=== PATIENT | female | born 1980 | race Caucasian/White ===

== ENCOUNTER 2016-02-22 01:58 | Emergency (ER) | payer BC ==
[2016-02-22] MEDS ORDERED: ONDANSETRON HCL 4 MG/2 ML VIAL IV ONE (02:12)
[2016-02-22] MEDS ORDERED: SODIUM CHLORIDE 0.9% 10 ML FLUSH FLUSH PRN (02:12)
[2016-02-22] MEDS ORDERED: MORPHINE 4 MG/ML INJECTION IV ONE (02:12)
[2016-02-22 02:14] VITALS: TEMP 98.1; BMI 34.8
--- NOTE | 2016-02-22 02:15 | EDPRACDOC ---
- General Information Stated Complaint: ABDOMINAL PAIN Time Seen by Provider: 02/22/16 02:04 Information Source: Patient, Family Mode Of Arrival: Car Home Medications: Home Medications Ciprofloxacin HCl [Cipro] 500 mg PO BID #20 tab 07/27/15 Ketorolac Tromethamine [Toradol] 10 mg PO Q6H PRN #20 tab 07/27/15 Levetiracetam [Keppra] 500 mg PO QAM 07/27/15 Levetiracetam [Keppra] 750 mg PO QHS 07/27/15 Montelukast Sodium [Singulair] 10 mg PO HS 07/27/15 Ondansetron [Zofran Odt] 4 mg PO Q6H PRN #20 tab.rapdis 07/27/15 Pantoprazole Sodium [Protonix] 40 mg PO DAILY 07/27/15 Zonisamide [Zonegran] 200 mg PO QHS 07/27/15 Hydrocodone Bit/Acetaminophen [Lortab 5/325] 1 tab PO Q4-6H PRN #15 tab Polyethylene Glycol 3350 [Miralax] 17 gm PO DAILY PRN #119 grams 02/22/16 Promethazine [Phenergan] 25 mg PO Q4-6H PRN #15 tab 02/22/16 Allergies/Adverse Reactions: Allergies Allergy/AdvReac Type Severity Reaction Status Date / Time amoxicillin trihydrate Allergy Mild Rash-Genera Verified 02/22/16 02:15 [From Augmentin] lized potassium clavulanate Allergy Mild Rash-Genera Verified 02/22/16 02:15 [From Augmentin] lized - History of Present Illness Onset: 2-3 days HPI: Pt c/o upper abd pain x 2-3 days that is persistent. Pt states for about 1 yrs she has had intermittent abd pain but no one has been able to tell her why, now pain is worse and unrelieved with OTC meds. Denies fever, n/v, changes in bowel or bladder, rash, cp, sob. Pain Location: Reports: RUQ, LUQ Pain Context: Reports: Spontaneous Pain Severity: Moderate Pain Quality: Reports: Aching, Sharp Pain Radiation: Reports: Back : No Abortus: 0 Modifying Factors: improves with: Nothing Female Associated Signs & Symptoms: Denies: Nausea, Frequency, Vaginal Bleeding , Vomiting, Hematemesis, Anorexia, Diarrhea, Melena, Dysuria, Fever, Urgency, Hematuria, Chills, Vaginal Discharge, Other Oral Intake: Normal Urinary Output: Normal ED Past Medical History - History Reviewed Yes Nurses notes reviewed and agree except as marked - Patient Medical History GI/ History: Reports: Gastroesophageal Reflux - Social Medical History Smoking Status: Never smoker ETOH: None Substance Abuse: None EDM Review of Systems - Review of Systems Constitutional: No Symptoms Reported. negative: Fever, Chills, Weakness, Fatigue, Loss of Appetite Ears: No Symptoms Reported. negative: Pain, Hearing Loss, Drainage, Ear Pulling Throat: No Symptoms Reported. negative: Pain, Swelling Nose: No Symptoms Reported. negative: Congestion, Bleeding, Discharge, Injection, Swelling, Deformity, Ecchymosis, Tender, Abrasion, Laceration Mouth: No Symptoms Reported. negative: Pain, Drooling Respiratory: No Symptoms Reported. negative: Cough, Brassy Cough, Barky Cough, Shortness of Breath, Wheezing, Hemoptysis Cardiovascular: No Symptoms Reported. negative: Chest Pain, Palpitations, Syncope, Edema, Orthopnea, PND, Skin Mottling, Cyanosis Gastrointestinal: Pain Genitourinary: No Symptoms Reported. negative: Dysuria, Hematuria, Frequency, Discharge, Bleeding, Testicular Pain, Neurological: No Symptoms Reported. negative: Headache, Dizziness, Seizure, Numbness, Weakness, Speech Difficulty, Gait Difficulty Musculoskeletal: Back, Ribs Integumentary: No Symptoms Reported. negative: Itching, Rash, Bruising, Wound Allergic/Immunologic: No Symptoms Reported. negative: Hives, Itching Hematologic: No Symptoms Reported. negative: Lymphadenopathy, Easy Bruising, Easy Bleeding Psychiatric: No Symptoms Reported. negative: Anxiety, Depression, Hallucinations, Insomnia, Suicidal - Physical Exam Constitutional: Alert Oriented to: Time, Person, Place Last recorded Vital Signs: Last Vital Signs Temp 98.1 F 02/22/16 02:10 Pulse 112 02/22/16 02:10 Resp 18 02/22/16 02:10 BP 126/90 02/22/16 02:10 Pulse Ox 100 02/22/16 02:10 Oxygen Pulse Oxygen Saturation 100 O2 Device Room Air Oxygen Flow Rate Fraction of Inspired Oxygen ( FIO2) - HEENT Head: Normal ( normocephalic) Eye Exam: Normal (PERRL, EOMI, Sclera white) Neck: Normal (FROM, trachea at midline) - Respiratory/Cardiovascular Respiratory: Normal - CTA (BBS clear to auscultation without adventitious sounds ) Cardiovascular: Normal (RRR without murmur, gallop or rub) - GI Auscultation: Normal (NABS) Palpation: Normal (Soft,No rebound or guarding, non distended) Tenderness: Non tender Roger's Sign: Negative - Musculoskeletal Back: Normal (Non-Tender) Extremities: Normal (Normal tone, Pulses 2+ No cyanosis or edema, FROM) - Integumentary Skin: Normal, Warm, Dry Lymphatics: Normal (no adenopathy) - Neurologic Memory Impaired: Normal Motor Function: Normal (Normal tone, Pulses 2+ No cyanosis or edema, FROM) Mood Description: Normal Perception: Normal - Differential Diagnosis Cholelithiasis, Colic, Gastroenteritis, Pancreatitis, PUD - Results 02/22/16 02:40 02/22/16 02:40 WBC 12.0 xk/uL (3.8-10.8) H 02/22/16 02:40 RBC 3.89 xM/uL (4.20-5.40) L 02/22/16 02:40 Hgb 11.7 g/dL (12.0-16.0) L 02/22/16 02:40 Hct 34.9 % (36-47) L 02/22/16 02:40 MCV 90 fL (81-99) 02/22/16 02:40 MCH 30.1 pg (27-32) 02/22/16 02:40 MCHC 33.6 g/dl (33-36) 02/22/16 02:40 RDW 13.6 % (11.5-14.5) 02/22/16 02:40 Plt Count 268 xk/uL (130-400) 02/22/16 02:40 MPV 7.3 fL (7.4-10.4) L 02/22/16 02:40 Neut % (Auto) 61.5 % (45-76) 02/22/16 02:40 Lymph % (Auto) 29.3 % (17-44) 02/22/16 02:40 [place] % (Auto) 6.7 % (3-10) 02/22/16 02:40 Eos % (Auto) 1.7 % (0-5) 02/22/16 02:40 Baso % (Auto) 0.8 % (0-2) 02/22/16 02:40 Absolute Neuts (auto) 7.32 xk/uL (1.7-8.2) 02/22/16 02:40 Absolute Lymphs (auto) 3.48 xk/uL (0.65-4.75) 02/22/16 02:40 Sodium 142 mEq/L (137-146) 02/22/16 02:40 Potassium 3.6 mEq/L (3.5-5.1) 02/22/16 02:40 Chloride 108 mEq/L (98-107) H 02/22/16 02:40 Carbon Dioxide 22 mMOL/L (22-33) 02/22/16 02:40 Anion Gap 16 mEq/L (8-16) 02/22/16 02:40 BUN 16 MG/DL (7-17) 02/22/16 02:40 Creatinine 0.80 MG/DL (0.52-1.04) 02/22/16 02:40 Estimated GFR (MDRD) > 60 mL/min (>=60) 02/22/16 02:40 Glucose 101 MG/DL (70-99) H 02/22/16 02:40 Calculated Osmolality 274 MOs/Kg (270-290) 02/22/16 02:40 Calcium 9.1 MG/DL (8.4-10.2) 02/22/16 02:40 Total Bilirubin 0.3 MG/DL (0.2-1.3) 02/22/16 02:40 AST 28 IU/L (14-36) 02/22/16 02:40 ALT 26 IU/L (9-52) 02/22/16 02:40 Alkaline Phosphatase 94 IU/L (38-126) 02/22/16 02:40 Total Protein 7.4 G/DL (6.3-8.2) 02/22/16 02:40 Albumin 4.0 G/DL (3.5-5.0) 02/22/16 02:40 Lipase 59 U/L (23-300) 02/22/16 02:40 Urine Color Yellow 02/22/16 02:20 Urine Clarity Clear 02/22/16 02:20 Urine pH 6.0 (5.0-8.0) 02/22/16 02:20 Ur Specific [place] 1.015 (1.003-1.035) 02/22/16 02:20 Urine Protein Neg (NEG/TRACE) 02/22/16 02:20 Urine Glucose (UA) Neg (NEGATIVE) 02/22/16 02:20 Urine Ketones Neg (NEGATIVE) 02/22/16 02:20 Urine Occult Blood Neg (NEG/TRACE) 02/22/16 02:20 Urine Nitrite Neg (NEGATIVE) 02/22/16 02:20 Urine Bilirubin Neg (NEGATIVE) 02/22/16 02:20 Urine Urobilinogen <2.0 MG/DL (0-1) 02/22/16 02:20 Ur Leukocyte Esterase Neg (NEGATIVE) 02/22/16 02:20 Urine RBC 0-2 (0-5) 02/22/16 02:20 Urine WBC 0-2 (0-5) 02/22/16 02:20 Ur Epithelial Cells Occ 02/22/16 02:20 Urine Bacteria Few (NEG/FEW) 02/22/16 02:20 Urine Mucus Occ (NEG/OCC) 02/22/16 02:20 Urine Test Neg (NEGATIVE) 02/22/16 02:20 Lab Results 02/22/16 02/22/16 02/22/16 02:40 02:40 02:20 WBC 12.0 H RBC 3.89 L Hgb 11.7 L Hct 34.9 L MCV 90 MCH 30.1 MCHC 33.6 RDW 13.6 Plt Count 268 MPV 7.3 L Neut % (Auto) 61.5 Lymph % (Auto) 29.3 [place] % (Auto) 6.7 Eos % (Auto) 1.7 Baso % (Auto) 0.8 Absolute Neuts (auto) 7.32 Absolute Lymphs (auto) 3.48 Sodium 142 Potassium 3.6 Chloride 108 H Carbon Dioxide 22 Anion Gap 16 BUN 16 Creatinine 0.80 Estimated GFR (MDRD) > 60 Glucose 101 H Calculated Osmolality 274 Calcium 9.1 Total Bilirubin 0.3 AST 28 ALT 26 Alkaline Phosphatase 94 Total Protein 7.4 Albumin 4.0 Lipase 59 Urine Color Yellow Urine Clarity Clear Urine pH 6.0 Ur Specific [place] 1.015 Urine Protein Neg Urine Glucose (UA) Neg Urine Ketones Neg Urine Occult Blood Neg Urine Nitrite Neg Urine Bilirubin Neg Urine Urobilinogen <2.0 Ur Leukocyte Esterase Neg Urine RBC 0-2 Urine WBC 0-2 Ur Epithelial Cells Occ Urine Bacteria Few Urine Mucus Occ Urine Test 02/22/16 02:20 WBC RBC Hgb Hct MCV MCH MCHC RDW Plt Count MPV Neut % (Auto) Lymph % (Auto) [place] % (Auto) Eos % (Auto) Baso % (Auto) Absolute Neuts (auto) Absolute Lymphs (auto) Sodium Potassium Chloride Carbon Dioxide Anion Gap BUN Creatinine Estimated GFR (MDRD) Glucose Calculated Osmolality Calcium Total Bilirubin AST ALT Alkaline Phosphatase Total Protein Albumin Lipase Urine Color Urine Clarity Urine pH Ur Specific [place] Urine Protein Urine Glucose (UA) Urine Ketones Urine Occult Blood Urine Nitrite Urine Bilirubin Urine Urobilinogen Ur Leukocyte Esterase Urine RBC Urine WBC Ur Epithelial Cells Urine Bacteria Urine Mucus Urine Test Neg - Diagnostic Imaging Abdomen Image interpreted by: Radiologist 02/22/16 03:57 IMPRESSION: 1. No bowel obstruction or free air. 2. Mild gastric distension with air-fluid level, may be related to recent meal ingestion, however gastroparesis could have a similar appearance. Moderate stool burden. - Additional Information Discussed with chanel Stock to d/c home - Departure Disposition: Home Condition: Stable Final Diagnosis: Upper abdominal pain Constipation Qualifiers: Constipation type: unspecified constipation type Qualified Code(s): K59.00 - Constipation, unspecified Instructions: Non-pharmacological Pain Management Therapies for Adults (GEN), Abdominal Pain (ED), Constipation (ED), High Fiber Diet (ED) Education/Counseling Given To: Patient Education/Counseling Given Regarding: Diagnosis, Treatment, Follow Up Referrals: Jeni Diaz MD [Primary Care Provider] - One Week Robin Dick DO [Staff Physician] - One Week Prescriptions: Hydrocodone Bit/Acetaminophen [Lortab 5/325] 1 tab PO Q4-6H PRN #15 tab PRN Reason: Pain Polyethylene Glycol 3350 [Miralax] 17 gm PO DAILY PRN #119 grams PRN Reason: Constipation Promethazine [Phenergan] 25 mg PO Q4-6H PRN #15 tab PRN Reason: Nausea/Vomiting Additional Instructions: Increase fluids and fiber. Return for worse or different symptoms.
[2016-02-22 02:53] LABS: AUTOMATED BASOPHIL 0.8 % (0-2); AUTOMATED EOSINOPHIL 1.7 % (0-5); AUTOMATED LYMPH 29.3 % (17-44); AUTOMATED MONOCYTE 6.7 % (3-10); AUTOMATED NEUTROPHIL 61.5 % (45-76); MPV 7.3 fL (7.4-10.4)
[2016-02-22 02:56] LABS: LEUKOCYTES/URINE NEG (NEGATIVE); NITRITE/URINE NEG (NEGATIVE); RBC/URINE 0-2 (0-5); URINE OCCULT BLOOD NEG (NEG/TRACE); WBC/URINE 0-2 (0-5)
[2016-02-22 03:02] LABS: BLOOD UREA NITROGEN 16 MG/DL (7-17); CALCIUM 9.1 MG/DL (8.4-10.2); CALCULATED OSMOLALITY 274 MOs/Kg (270-290); CHLORIDE 108 mEq/L (98-107); GLUCOSE 101 MG/DL (70-99); SODIUM LEVEL 142 mEq/L (137-146); TOTAL PROTEIN 7.4 G/DL (6.3-8.2)
[2016-02-22] MEDS ORDERED: HYDROmorphone 1 MG INJECTION IV ONE (03:16)
--- NOTE | 2016-02-22 03:54 | DIRPT ---
CLINICAL DATA: Abdominal pain. Intermittent pain for 1 year. EXAM: DG ABDOMEN ACUTE W/ 1V CHEST COMPARISON: CT FINDINGS: The cardiomediastinal contours are normal. The lungs are clear. Air-fluid level noted in the stomach, which appears mildly distended. There is no free intra-abdominal air. No dilated bowel loops to suggest obstruction. Moderate volume of stool throughout the colon. No radiopaque calculi. No acute osseous abnormalities are seen. IMPRESSION: 1. No bowel obstruction or free air. 2. Mild gastric distension with air-fluid level, may be related to recent meal ingestion, however gastroparesis could have a similar appearance. Moderate stool burden. Electronically Signed By: Tracy Contreras M.D. On: 02/22/2016 03:52
[2016-02-22 04:19] VITALS: BP 115/76; PULSE 98
== END 2016-02-22 04:15 | disposition home or self-care (01) ==
LOC: ED 01:58
DX: K59.00 Constipation, unspecified (principal); R10.10 Upper abdominal pain, unspecified
CPT/HCPCS: 36415; 74022; 80053; 81001; 81025; 83690; 85025; 96374; 96375; 99283; J1170; J2270; J2405

== ENCOUNTER 2016-02-24 01:39 | Emergency (ER) | payer BC ==
[2016-02-24 01:49] VITALS: BP 128/81; PULSE 107; TEMP 97.7; BMI 34.4
[2016-02-24] MEDS ORDERED: HYDROmorphone 1 MG INJECTION IV ONE (02:06)
[2016-02-24] MEDS ORDERED: ONDANSETRON HCL 4 MG/2 ML VIAL IV ONE (02:07)
[2016-02-24] MEDS ORDERED: KETOROLAC TROMETH 30 MG/ML VIAL IV ONE (02:07)
[2016-02-24] MEDS ORDERED: NS 1,000 ML IV ONE (02:07)
--- NOTE | 2016-02-24 02:11 | EDPRACDOC ---
- General Information Chief Complaint: Abdominal Pain Stated Complaint: CHEST & ABDOMINAL PAIN Time Seen by Provider: 02/24/16 02:08 Information Source: Patient Mode Of Arrival: Car Home Medications: Home Medications Ciprofloxacin HCl [Cipro] 500 mg PO BID #20 tab 07/27/15 Ketorolac Tromethamine [Toradol] 10 mg PO Q6H PRN #20 tab 07/27/15 Levetiracetam [Keppra] 500 mg PO QAM 07/27/15 Levetiracetam [Keppra] 750 mg PO QHS 07/27/15 Montelukast Sodium [Singulair] 10 mg PO HS 07/27/15 Ondansetron [Zofran Odt] 4 mg PO Q6H PRN #20 tab.rapdis 07/27/15 Pantoprazole Sodium [Protonix] 40 mg PO DAILY 07/27/15 Zonisamide [Zonegran] 200 mg PO QHS 07/27/15 Hydrocodone Bit/Acetaminophen [Lortab 5/325] 1 tab PO Q4-6H PRN #15 tab Polyethylene Glycol 3350 [Miralax] 17 gm PO DAILY PRN #119 grams 02/22/16 Promethazine [Phenergan] 25 mg PO Q4-6H PRN #15 tab 02/22/16 Allergies/Adverse Reactions: Allergies Allergy/AdvReac Type Severity Reaction Status Date / Time amoxicillin trihydrate Allergy Mild Rash-Genera Verified 02/22/16 02:15 [From Augmentin] lized potassium clavulanate Allergy Mild Rash-Genera Verified 02/22/16 02:15 [From Augmentin] lized - 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 She was told that it was her GB and referred to [facility] but had an US. Her PCP has scheduled an US for the am. She has never had endoscopy. She takes PPI denies any current heartburn symptoms. no back pain. no F/C. nausea no emesis, diarrhea or constipation. Pain Location: Reports: Epigastric, RUQ, LUQ. Denies: RLQ, LLQ, Periumbilical Pain Context: Reports: Spontaneous. Denies: While Eating, Following Trauma Pain Severity: Severe Pain Quality: Reports: Sharp Pain Radiation: Reports: No Radiation : No Abortus: 0 Oral Intake: Normal Urinary Output: Normal ED Past Medical History - History Reviewed Yes Nurses notes reviewed and agree except as marked - Patient Medical History GI/ History: Reports: Gastroesophageal Reflux Psychological History: Denies: Depression Systemic History: Denies: Cancer Surgical History: Denies: Hysterectomy - Social Medical History Smoking Status: Never smoker EDM Review of Systems - Review of Systems ROS Negative Except as Marked: Yes All systems reviewed and were negative except as marked - Physical Exam Constitutional: Alert (Awake), Well nourished, Well appearing Oriented to: Time, Person, Place Last recorded Vital Signs: Last Vital Signs Temp 97.7 F 02/24/16 01:45 Pulse 107 02/24/16 01:45 Resp 20 02/24/16 01:45 BP 128/81 02/24/16 01:45 Pulse Ox 98 02/24/16 01:45 Oxygen Pulse Oxygen Saturation 98 O2 Device Room Air Oxygen Flow Rate Fraction of Inspired Oxygen ( FIO2) - HEENT Head: Normal ( normocephalic) Eye Exam: Normal (PERRL, EOMI, Sclera white) Oropharynx: Normal (Pharynx:Moist without exudate,Gums-no swelling) Nose: No Symptoms Reported (septum midline) Neck: Normal (FROM, trachea at midline) - Respiratory/Cardiovascular Respiratory: Normal - CTA (BBS clear to auscultation without adventitious sounds ) Cardiovascular: Normal (RRR without murmur, gallop or rub) - GI Auscultation: Normal (NABS) Palpation: Normal (Soft,No rebound or guarding, non distended) Tenderness: Mild, RUQ, LUQ, Epigastric. negative: RLQ, LLQ, Suprapubic, Periumbilical - Musculoskeletal Back: Normal (Non-Tender) Extremities: Normal (Normal tone, Pulses 2+ No cyanosis or edema, FROM) - Integumentary Skin: Normal, Warm, Dry Lymphatics: Normal (no adenopathy) - Neurologic Memory Impaired: Normal Motor Function: Normal (Normal tone, Pulses 2+ No cyanosis or edema, FROM) Cranial Nerve: Normal (CN II-X11 intact sensation, strength 5/5) Cerebellar: Normal Mood Description: Normal Perception: Normal - Re-evaluation Re-evaluation 1 Re-evaluation Time: 05:05 (pain 0/10, ABD s/nt/nd, neg Butler sign. Pt wants to go home. ) - Results 02/24/16 03:00 02/24/16 03:00 WBC 16.9 xk/uL (3.8-10.8) H 02/24/16 03:00 RBC 4.18 xM/uL (4.20-5.40) L 02/24/16 03:00 Hgb 12.6 g/dL (12.0-16.0) 02/24/16 03:00 Hct 37.8 % (36-47) 02/24/16 03:00 MCV 90 fL (81-99) 02/24/16 03:00 MCH 30.1 pg (27-32) 02/24/16 03:00 MCHC 33.3 g/dl (33-36) 02/24/16 03:00 RDW 13.6 % (11.5-14.5) 02/24/16 03:00 Plt Count 245 xk/uL (130-400) 02/24/16 03:00 MPV 8.0 fL (7.4-10.4) 02/24/16 03:00 Neut % (Auto) 81.3 % (45-76) H 02/24/16 03:00 Lymph % (Auto) 12.5 % (17-44) L 02/24/16 03:00 [place] % (Auto) 5.0 % (3-10) 02/24/16 03:00 Eos % (Auto) 0.6 % (0-5) 02/24/16 03:00 Baso % (Auto) 0.6 % (0-2) 02/24/16 03:00 Absolute Neuts (auto) 13.69 xk/uL (1.7-8.2) H 02/24/16 03:00 Absolute Lymphs (auto) 2.03 xk/uL (0.65-4.75) 02/24/16 03:00 Urine Color Yellow 02/24/16 02:45 Urine Clarity Clear 02/24/16 02:45 Urine pH 8.0 (5.0-8.0) 02/24/16 02:45 Ur Specific [place] 1.005 (1.003-1.035) 02/24/16 02:45 Urine Protein Neg (NEG/TRACE) 02/24/16 02:45 Urine Glucose (UA) Neg (NEGATIVE) 02/24/16 02:45 Urine Ketones Neg (NEGATIVE) 02/24/16 02:45 Urine Occult Blood 2+ (NEG/TRACE) H 02/24/16 02:45 Urine Nitrite Neg (NEGATIVE) 02/24/16 02:45 Urine Bilirubin Neg (NEGATIVE) 02/24/16 02:45 Urine Urobilinogen <2.0 MG/DL (0-1) 02/24/16 02:45 Ur Leukocyte Esterase Neg (NEGATIVE) 02/24/16 02:45 Urine WBC 0-2 (0-5) 02/24/16 02:45 Ur Epithelial Cells 1+ 02/24/16 02:45 Amorphous Sediment Occ 02/24/16 02:45 Urine Bacteria 1+ (NEG/FEW) H 02/24/16 02:45 Urine Test Neg (NEGATIVE) 02/24/16 02:45 Lab Results 02/24/16 02/24/16 02/24/16 03:00 02:45 02:45 WBC 16.9 H RBC 4.18 L Hgb 12.6 Hct 37.8 MCV 90 MCH 30.1 MCHC 33.3 RDW 13.6 Plt Count 245 MPV 8.0 Neut % (Auto) 81.3 H Lymph % (Auto) 12.5 L [place] % (Auto) 5.0 Eos % (Auto) 0.6 Baso % (Auto) 0.6 Absolute Neuts (auto) 13.69 H Absolute Lymphs (auto) 2.03 Urine Color Yellow Urine Clarity Clear Urine pH 8.0 Ur Specific [place] 1.005 Urine Protein Neg Urine Glucose (UA) Neg Urine Ketones Neg Urine Occult Blood 2+ H Urine Nitrite Neg Urine Bilirubin Neg Urine Urobilinogen <2.0 Ur Leukocyte Esterase Neg Urine WBC 0-2 Ur Epithelial Cells 1+ Amorphous Sediment Occ Urine Bacteria 1+ H Urine Test Neg Decision Time to Discharge: 05:05 - Departure Yes I personally saw and evaluated the patient. Disposition: Home Condition: Improved Final Diagnosis: Abdominal pain, Upper abdominal pain Instructions: Acute Abdominal Pain (ED), Non-pharmacological Pain Management Therapies for Adults (GEN), Abdominal Pain (ED) Education/Counseling Given To: Patient Education/Counseling Given Regarding: Diagnosis, Treatment, Follow Up Additional Instructions: Get scheduled ultrasound at 9am and follow up with your physician.
[2016-02-24 03:15] LABS: AUTOMATED BASOPHIL 0.6 % (0-2); AUTOMATED EOSINOPHIL 0.6 % (0-5); AUTOMATED LYMPH 12.5 % (17-44); AUTOMATED NEUTROPHIL 81.3 % (45-76)
[2016-02-24 03:15] LABS: AMORPHOUS OCC; LEUKOCYTES/URINE NEG (NEGATIVE); NITRITE/URINE NEG (NEGATIVE); URINE OCCULT BLOOD 2+ (NEG/TRACE); WBC/URINE 0-2 (0-5)
[2016-02-24] MEDS ORDERED: ONDANSETRON HCL 4 MG/2 ML VIAL IM ONE (03:40)
[2016-02-24] MEDS ORDERED: KETOROLAC TROMETH 30 MG/ML VIAL IM ONE (03:40)
[2016-02-24] MEDS ORDERED: HYDROmorphone 1 MG INJECTION IM ONE (03:45)
== END 2016-02-24 05:16 | disposition home or self-care (01) ==
LOC: ED 01:39
DX: R10.10 Upper abdominal pain, unspecified (principal)
CPT/HCPCS: 36415; 76705; 81001; 81025; 85025; 96372; 99283; J1170; J1885; J2405